=== PATIENT | female | born 1945 | race Two or more races ===

== ENCOUNTER 2017-06-12 11:14 | Outpatient (CLI) | payer OTHER ==
[~2017-06-12 11:14] MED LIST: AMANTADINE100 MG PO; EFFEXOR50 MG; FLEXERIL5 MG PO; NEXIUM40 MG/PACK PO; PREMARIN0.45 MG PO; PROVERA2.5 MG PO; [UNRECOGNIZED DRUG - OTHER]; [UNRECOGNIZED DRUG - OTHER] PO
== END 2017-06-12 11:34 | disposition home or self-care (01) ==
LOC: SONOGRAMA 11:14
DX: N63.41 Unspecified lump in right breast, subareolar (principal); N60.11 Diffuse cystic mastopathy of right breast; N60.12 Diffuse cystic mastopathy of left breast

== ENCOUNTER 2017-07-20 10:52 | Outpatient (CLI) | payer OTHER | END 2017-07-20 11:00 | disposition home or self-care (01) | LOC: RAD 501 10:52 | DX: M25.571 Pain in right ankle and joints of right foot (principal) ==

== ENCOUNTER 2017-07-24 09:41 | Outpatient (CLI) | payer OTHER | END 2017-07-24 09:52 | disposition home or self-care (01) | LOC: RAD 501 09:41 | DX: M25.532 Pain in left wrist (principal) ==

== ENCOUNTER 2017-11-17 16:15 | Inpatient (IN) | payer OTHER ==
[~2017-11-17] VITALS: Ht 154.9 cm; Wt 54.4 kg
[2017-11-17] MEDS ORDERED: PROTONIX40 MG (16:28)
[2017-11-17] MEDS ORDERED: CARAFATE1 GM/10 ML (16:28)
[2017-11-17] MEDS ORDERED: AMITIZA24 MCG (16:29)
[2017-11-17] MEDS ORDERED: FOLIC ACID1 MG (16:29)
[2017-11-17] MEDS ORDERED: RESTORIL30 M1 (16:30)
[2017-11-17] MEDS ORDERED: VITAMIN E1000 UNI2 (16:30)
[2017-11-17] MEDS ORDERED: CLONAZEPAM1 MG (16:31)
[2017-11-17] MEDS ORDERED: SINGULAIR10 MG (16:32)
[2017-11-17] MEDS ORDERED: RAYOS1 MG (16:35)
[2017-11-17] MEDS ORDERED: GINGER500 MG (16:36)
[2017-11-17] MEDS ORDERED: VIT C-ROSE HIP500 MG (16:36)
== END 2017-12-09 15:10 | disposition home or self-care (01) | DRG 558 ==
LOC: ER 16:15 → MEDJ 20:55 → MEDI 20:55 → MEDJ 11-18 10:58
PROC: 8E0ZXY6 Isolation (ICD-10-PCS; 2017-11-18)
PROC: 02HV33Z Insertion of Infusion Device into Superior Vena Cava, Percutaneous Approach (ICD-10-PCS; 2017-11-20)
PROC: BP4 Imaging, Non-Axial Upper Bones, Ultrasonography (ICD-10-PCS; principal; 2017-11-21)
DX: M71.121 Other infective bursitis, right elbow (principal); L03.113 Cellulitis of right upper limb; G35 Multiple sclerosis; M06.89 Other specified rheumatoid arthritis, multiple sites; Z79.52 Long term (current) use of systemic steroids; D64.89 Other specified anemias; K31.84 Gastroparesis

== ENCOUNTER 2018-02-16 15:57 | Outpatient (CLI) | payer OTHER ==
[~2018-02-16 15:57] MED LIST changes: +AMITIZA24 MCG; +CARAFATE1 GM/10 ML; +CLONAZEPAM1 MG; +FOLIC ACID1 MG; +GINGER500 MG; +PROTONIX40 MG; +RAYOS1 MG; +RESTORIL30 M1; +SINGULAIR10 MG; +VIT C-ROSE HIP500 MG; +VITAMIN E1000 UNI2
== END 2018-02-16 16:04 | disposition home or self-care (01) ==
LOC: LAB 15:57
DX: N30.00 Acute cystitis without hematuria (principal)

== ENCOUNTER 2018-12-29 09:45 | Emergency (ER) | payer OTHER ==
[~2018-12-29] VITALS: Ht 154.9 cm; Wt 51.7 kg
== END 2018-12-29 12:20 | disposition home or self-care (01) ==
LOC: ER 09:45
DX: J06.9 Acute upper respiratory infection, unspecified (principal)

== ENCOUNTER 2019-02-18 11:37 | Outpatient (CLI) | payer OTHER | END 2019-02-18 11:38 | disposition home or self-care (01) | LOC: RAD 11:37 | DX: M19.011 Primary osteoarthritis, right shoulder (principal) ==

== ENCOUNTER 2019-05-31 12:16 | Outpatient (CLI) | payer OTHER | END 2019-05-31 12:25 | disposition home or self-care (01) | LOC: RAD 12:16 | DX: M25.531 Pain in right wrist (principal); M54.2 Cervicalgia; Z91.81 History of falling ==

== ENCOUNTER 2019-10-04 13:38 | Outpatient (CLI) | payer OTHER | END 2019-10-04 13:46 | disposition home or self-care (01) | LOC: RAD 13:38 | PROVIDERS: ATTEND Physical Medicine & Rehabilitation | DX: S40.011A Contusion of right shoulder, initial encounter (principal) ==

== ENCOUNTER 2021-03-05 13:30 | Emergency (ER) | payer OTHER ==
[~2021-03-05] VITALS: Ht 154.9 cm; Wt 57.6 kg
[2021-03-05] MEDS ORDERED: METHOTREXATE2.5 MG PO (14:12)
[2021-03-05] MEDS ORDERED: RESTORIL15 M1 PO (14:12)
[2021-03-05] MEDS ORDERED: FOLIC ACID0.8 M1 (14:12)
[2021-03-05] MEDS ORDERED: WELLBUTRIN XL300 MG PO (14:12)
[2021-03-05] MEDS ORDERED: LEVOXYL75 MCG PO (14:13)
== END 2021-03-05 19:35 | disposition home or self-care (01) ==
LOC: ER 13:30
DX: S20.211A Contusion of right front wall of thorax, initial encounter (principal); S20.221A Contusion of right back wall of thorax, initial encounter; M54.59 Other low back pain; N39.0 Urinary tract infection, site not specified; W18.09XA Striking against other object with subsequent fall, initial encounter; Y93.89 Activity, other specified; Y92.018 Other place in single-family (private) house as the place of occurrence of the external cause; Y99.8 Other external cause status

== ENCOUNTER 2021-11-11 08:29 | Outpatient (CLI) | payer OTHER ==
[~2021-11-11 08:29] MED LIST changes: +FOLIC ACID0.8 M1; +LEVOXYL75 MCG PO; +METHOTREXATE2.5 MG PO; +RESTORIL15 M1 PO; +WELLBUTRIN XL300 MG PO
== END 2021-11-11 08:31 | disposition home or self-care (01) ==
LOC: TOM 08:29
DX: I61.0 Nontraumatic intracerebral hemorrhage in hemisphere, subcortical (principal)

== ENCOUNTER 2022-08-21 01:13 | Emergency (ER) | payer OTHER ==
[~2022-08-21] VITALS: Ht 154.9 cm; Wt 53.1 kg
== END 2022-08-21 10:52 | disposition home or self-care (01) ==
LOC: ER 01:13
DX: S90.811A Abrasion, right foot, initial encounter (principal); W18.39XA Other fall on same level, initial encounter; Y93.9 Activity, unspecified; Y92.9 Unspecified place or not applicable; Z91.012 Allergy to eggs; Z88.0 Allergy status to penicillin; Z88.6 Allergy status to analgesic agent; M54.50 Low back pain, unspecified